=== PATIENT | female | born 1975 | race Caucasian/White ===

== ENCOUNTER 2020-04-08 23:55 | Emergency (ER) | payer MEDICAID ==
[~2020-04-08] VITALS: Ht 167.6 cm; Wt 78.5 kg
[~2020-04-08 23:55] MED LIST: COL100 PO; LIPI10 PO; NATURAL IRON65 MG PO; PRILOSEC OTC20 M1 PO
[2020-04-08 23:56] VITALS: Ht 167.6 cm; Wt 78.5 kg
[2020-04-09 00:37] LABS: CALCIUM 8.3 mg/dL (8.5-10.1); CARBON DIOXIDE 23.7 mmol/L (21-32); CHLORIDE SERUM 104 mmol/L (98-107); CREATININE SERUM 0.7 mg/dL (0.6-1.0); GFR1 > 60 mL/min; GLUCOSE SERUM 101 mg/dL (74-106); POTASSIUM SERUM 3.9 mmol/L (3.5-5.1); SODIUM SERUM 139 mmol/L (136-145)
[2020-04-09 00:43] LABS: ALBUMIN 3.5 g/dL (3.4-5.0); ALKALINE PHOSPHATASE 128 U/L (46-116); ALT/SGPT 36 U/L (14-59); AST/SGOT 21 U/L (15-37); BILIRUBIN TOTAL 0.2 mg/dL (0.20-1.00); TOTAL PROTEIN, SERUM 7.3 g/dL (6.4-8.2)
[2020-04-09 00:44] LABS: PLATELET COUNT 317 x10^3mcL (130-400)
[2020-04-09 00:52] LABS: BASOPHIL % 0 % (0-2)
[2020-04-09 04:28] VITALS: BP 109/59
== END 2020-04-09 04:28 | disposition home or self-care (01) ==
LOC: ED 23:55
DX: R07.89 Other chest pain (principal); R06.02 Shortness of breath; M79.602 Pain in left arm; M79.601 Pain in right arm
CPT/HCPCS: Q0092